=== PATIENT | male | born 1985 | race American Indian/Alaskan Native ===

== ENCOUNTER 2018-04-23 11:39 | Emergency (ER) | payer OTHER ==
[2018-04-23] MEDS ORDERED: TORADOL IV ONE (12:15)
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
--- NOTE | 2018-04-23 14:22 | XRay Report ---
CERVICAL SPINE, 3 views: History: Neck pain. Findings: The vertebral bodies, disk spaces, posterior elements and prevertebral soft tissues are unremarkable. The dens is intact. No acute fracture or malalignment is identified. Impression: 1. No evidence for acute injury to the cervical spine.
--- NOTE | 2018-04-23 14:23 | XRay Report ---
ROUTINE CHEST, TWO VIEWS: HISTORY: chest pain. The trachea, heart, mediastinal contour, lung franco and bony thorax are unremarkable. Mild dextro curvature to the thoracic spine is noted. IMPRESSION: Unremarkable chest x-ray.
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
[2018-04-23 15:43] VITALS: BP 135/84
== END 2018-04-23 15:43 | disposition home or self-care (01) ==
LOC: ED 11:39
DX: S86.912A Strain of unspecified muscle(s) and tendon(s) at lower leg level, left leg, initial encounter (principal); S13.4XXA Sprain of ligaments of cervical spine, initial encounter; M19.90 Unspecified osteoarthritis, unspecified site; F17.200 Nicotine dependence, unspecified, uncomplicated; V89.2XXA Person injured in unspecified motor-vehicle accident, traffic, initial encounter; Y93.89 Activity, other specified; Y92.488 Other paved roadways as the place of occurrence of the external cause; Y99.8 Other external cause status
CPT/HCPCS: 71046; 72040; 73562; 96374; 99284; J1885